=== PATIENT | female | born 1940 | race Caucasian/White ===

== ENCOUNTER 2019-06-14 17:04 | Emergency (ER) | payer OTHER ==
--- NOTE | 2019-06-14 17:49 | ED ---
Head Injury - HPI Summary HPI Summary: LEVEL 5 CAVEAT secondary to dementia. The patient is a 79 y/o F arriving by ambulance to [facility] with a chief complaint of fall with sustained head injury in the occipital region today. She reports that she isnt sure how she fell, but she denies LOC. She isnt sure if she was able to stand up on her own after the fall. She denies numbness in the extremities. States she is UTD on tetanus vaccine. PMHx: afib, HTN, PE, dementia. Nonsmoker, no EtOH, no substance use. Medications reviewed. Allergies notes. - History Of Current Complaint Stated Complaint: FALL, HEAD LACERATION PER EMS Time Seen by Provider: 06/14/19 17:42 Hx Obtained From: EMS, Medical Records Hx From Patient Unobtainable Due To: Dementia - LEVEL 5 CAVEAT Mechanism Of Injury: Fall From A Standing Position Onset/Duration: Started Hours Ago, Still Present Onset of Pain: Post Accident Severity Currently: Moderate Severity Initially: Moderate Pain Scale Used: 0-10 Numeric Location of Head Injury: Occipital Associated Signs And Symptoms: Other: - NEGATIVE: LOC, numbness in extremities - Allergies/Home Medications Allergies/Adverse Reactions: Allergies Allergy/AdvReac Type Severity Reaction Status Date / Time MS Ciprofloxacin Allergy Unknown Unknown Verified 09/11/15 13:48 [Ciprofloxacin] Reaction Details MS Penicillins [Penicillins] Allergy Unknown Unknown Verified 09/11/15 13:48 Reaction Details MS Sulfamethoxazole Allergy Unknown Unknown Verified 09/11/15 13:48 w/Trimethoprim Reaction [From Bactrim] Details Home Medications: Home Medications Latanoprost 0.005% Eye Drop 0.005 % BOTH EYES BEDTIME 06/14/19 [History Confirmed 06/14/19] Mirtazapine TAB* [Remeron TAB*] 15 mg PO BEDTIME 06/14/19 [History Confirmed 04/27] Senna-S Laxative Tablet 8.6 - 50 mg pe PO BEDTIME 06/14/19 [History Confirmed ] Vitamin D3 50,000 unit PO MONTHLY 06/14/19 [History Confirmed 06/14/19] PMH/Surg Hx/FS Hx/Imm Hx Endocrine/Hematology History: Denies: Hx Anticoagulant Therapy, Hx Diabetes, Hx Thyroid Disease Cardiovascular History: Reports: Hx Atrial Fibrillation, Hx Hypertension Denies: Hx Congestive Heart Failure, Hx Pacemaker/ICD Respiratory History: Reports: Hx Pulmonary Embolism Denies: Hx Asthma, Hx Chronic Obstructive Pulmonary Disease (COPD) GI History: Reports: Hx Gastroesophageal Reflux Disease History: Reports: Other Problems/Disorders - recurrent UTIs Denies: Hx Dialysis, Hx Renal Disease Musculoskeletal History: Reports: Hx Arthritis - very little Denies: Hx Back Problems, Hx Fibromyalgia, Hx Gout, Hx Orthopedic Injury, Hx Scoliosis Sensory History: Reports: Hx Contacts or Glasses Opthamlomology History: Reports: Hx Contacts or Glasses Neurological History: Reports: Hx Dementia Denies: Hx Seizures Psychiatric History: Reports: Hx Depression, Other Psychiatric Issues/Disorders - bad nightmares, perhaps hallucinations Denies: Hx Eating Disorder, Hx Substance Abuse - Surgical History Surgery Procedure, Year, and Place: SURGERY 12/19 FOR CYST ON LIVER Hx Anesthesia Reactions: No Infectious Disease History: Denies: Hx Hepatitis, Hx Human Immunodeficiency Virus (HIV) - Family History Known Family History: Positive: Unknown - patient with dementia, unable to provide - Social History Alcohol Use: None Hx Substance Use: No Substance Use Type: Reports: None Hx Tobacco Use: No Smoking Status (MU): Never Smoked Tobacco Review of Systems Neurological: Other - POSITIVE: head injury secondary to fall; NEGATIVE: LOC Negative: Numbness All Other Systems Reviewed And Are Negative: No - Comments Additional Review of Systems Comments: LEVEL 5 CAVEAT secondary to dementia Physical Exam - Summary Physical Exam Summary: Constitutional: Well-developed, Well-nourished, Alert. (-) Distressed Skin: Warm, Dry HENT: 3 cm laceration on the top of the scalp, Normocephalic Eyes: Conjunctiva normal Neck: Musculoskeletal ROM normal neck. (-) JVD, (-) Stridor, (-) Tracheal deviation Cardio: Rhythm regular, rate normal, Heart sounds normal; Intact distal pulses; The pedal pulses are 2+ and symmetric. Radial pulses are 2+ and symmetric. (-) Murmur Pulmonary/Chest wall: Effort normal. (-) Respiratory distress, (-) Wheezes, (-) Rales Abd: Soft, (-) tenderness, (-) Distension, (-) Guarding, (-) Rebound Musculoskeletal: (-) Edema Lymph: (-) Cervical adenopathy Neuro: Alert, Confused, Strength normal, Cranial nerves II-XII are grossly intact. (-) Dysmetria, (-) Nystagmus, (-) Ataxia by finger to nose testing, (-) Sensory deficit. GCS: 14 (see scale) Psych: Mood and affect Normal Triage Information Reviewed: Yes Vital Signs Reviewed: Yes Completion Of Physical Exam Limited Due To: Level 5 - secondary to dementia - Job Coma Scale Best Eye Response: 4 - Spontaneous Best Motor Response: 6 - Obeys Commands Best Verbal Response: 4 - Confused Coma Scale Total: 14 Procedures - Laceration/Wound Repair 1 Location: head - top of scalp Anesthesia: Lido - let gel Length, Depth and Shape: 3 cm Laceration/Wound Explored: clean Closure: Arturo #__ - 3 Diagnostics - Laboratory Lab Statement: Any lab studies that have been ordered have been reviewed, and results considered in the medical decision making process. - CT Brain CT CT Interpretation Completed By: Radiologist Summary of CT Findings: Impression: 1. No traumatic intracranial abnormalities. 2. Age-related atrophy and mild chronic small vessel ischemic disease unchanged from prior. ED physician has reviewed this report. Cervical Spine CT CT Interpretation Completed By: Radiologist Summary of CT Findings: Impression: 1. No cervical spine traumatic abnormalities. 2. Mild multilevel cervical spondylopathy. ED physician has reviewed this report. Re-Evaluation - Re-Evaluation First Eval Re-Evaluation Time: 19:25 Comment: I performed the head laceration repair. Head Injury Course/Dx Course Of Treatment: Patient is here after a mechanical fall. Patient had negative CT head and cervical spine. Patient had successful repair of her laceration with arturo. Patient is in her mental baseline per the EMS report. Patient was borderline tachycardic here and was given 1 L fluid. - Diagnoses Provider Diagnoses: Fall, Head injury Discharge - Sign-Out/Discharge Documenting (check all that apply): Patient Departure - Patient will be discharged home. Patient Received Moderate/Deep Sedation with Procedure: No - Discharge Plan Condition: Stable Disposition: HOME Patient Education Materials: Fall Prevention for Older Adults (ED), Head Injury (ED) Referrals: Singh Pitts MD [Primary Care Provider] - 3 Days Additional Instructions: Follow up with your primary care provider in 2-3 days. Return to the emergency department for any new or worsening symptoms. - Billing Disposition and Condition Condition: STABLE Disposition: Home - Attestation Statements Document Initiated by Scribe: Yes Documenting Scribe: Thalia Jackson Provider For Whom Scribe is Documenting (Include Credential): Dr. Robbi Abebe MD Scribe Attestation: I, Thalia Jackson, scribed for Dr. Robbi Abebe MD on 06/14/19 at 2000. Scribe Documentation Reviewed: Yes Provider Attestation: The documentation as recorded by the Thalia acevedo accurately reflects the service I personally performed and the decisions made by me, Dr. Robbi Abebe MD Status of Scribe Document: Viewed
[2019-06-14] MEDS ORDERED: NS 0.9% 1000 ML** 1,000 ML IV ONE (19:21)
[2019-06-14 20:35] VITALS: BP 135/80
== END 2019-06-14 20:33 | disposition home or self-care (01) ==
LOC: ED 17:04
DX: S09.90XA Unspecified injury of head, initial encounter (principal); M48.8X2 Other specified spondylopathies, cervical region; W19.XXXA Unspecified fall, initial encounter; Y92.9 Unspecified place or not applicable; I48.91 Unspecified atrial fibrillation; I10 Essential (primary) hypertension; F03.90 Unspecified dementia, unspecified severity, without behavioral disturbance, psychotic disturbance, mood disturbance, and anxiety; Z86.711 Personal history of pulmonary embolism; Z88.1 Allergy status to other antibiotic agents; Z88.0 Allergy status to penicillin; Z88.2 Allergy status to sulfonamides; Z79.899 Other long term (current) drug therapy
CPT/HCPCS: 12002; 70450; 72125; 99282

== ENCOUNTER 2024-07-16 23:00 | Inpatient (IN) ==
[2024-07-17 00:06] LABS: ABS Eosinophils 0.1 10^3/uL (0.0-0.5); ABS Lymphocytes 1.9 10^3/uL (1.0-4.8); ABS Monocytes 0.9 10^3/uL (0.0-0.9); ABS Neutrophils 7.4 10^3/uL (1.5-7.6); ABS Nucleated RBC 0.01 10^3/ul; Eosinophil % 0.7 %; Hematocrit 40.9 % (35-45); Hemoglobin 13.2 g/dL (11.5-14.3); Lymphocyte % 18.6 %; Mean Corpuscular Hemoglobin 27.1 pg (27-33); Mean Corpuscular Hgb Conc 32.4 g/dL (31-36); Mean Corpuscular Volume 83.5 fL (80-97); Mean Platelet Volume 9.1 fL (7.5-11.2); Nucleated Red Blood Cells % 0.1 %/100WBC (0.0-0.8); Platelet Count 304 10^3/uL (150-450); Red Blood Count 4.89 10^6/uL (3.63-4.92); Red Cell Distribution Width 14.3 % (12-17); White Blood Count 10.3 10^3/uL (3.8-11.8)
[2024-07-17] MEDS: Lactated Ringers 1000 ml BAG 1,000 ML IV SCH ×2 (00:10→17:23)
[2024-07-17 00:13] LABS: Albumin/Globulin Ratio 0.8 (1-3); C Reactive Protein 120.7 mg/L (<8.01); Calcium 8.6 mg/dL (8.6-10.3); Creatinine, Serum 1.86 mg/dL (0.51-0.95); Potassium 4.1 mmol/L (3.5-5.0); Total Bilirubin 0.6 mg/dL (0.2-1.0); eGFR CKD-EPI 26.5 (>60)
[2024-07-17 00:42] LABS: INR 1.46 (0.85-1.14)
[2024-07-17] MEDS: Sodium Phosphate ADULT ENEMA 133 ML BTL PR ONE (03:15)
[2024-07-17 03:43] LABS: Urine Appearance Extra Turbid; Urine Bilirubin Negative (Negative); Urine Blood 2+ (Negative); Urine Glucose Negative (Negative); Urine Ketones Negative (Negative); Urine Nitrite Negative (Negative); Urine Protein 1+ (>=30 mg/dL) (Negative); Urine Specific Gravity 1.014 (1.002-1.030); Urine Urobilinogen Negative (Negative); Urine pH 5.5 (5.0-8.0)
[2024-07-17 04:04] LABS: Urine Bacteria 3+ /HPF (Absent); Urine Red Blood Cell 2+(6-10/hpf) /HPF (0-Trace); Urine White Blood Cell 3+(>20/hpf) /HPF (0-Trace)
[2024-07-17 04:15] LABS: Urine Color Light-Yellow
[2024-07-17] MEDS ORDERED: Magnesium Hydroxide LIQ 30 ML UDC PO PRN (05:24)
[2024-07-17 08:03] LABS: ABS Basophils 0.1 10^3/uL (0.0-0.1); ABS Eosinophils 0.1 10^3/uL (0.0-0.5); ABS Lymphocytes 1.4 10^3/uL (1.0-4.8); ABS Monocytes 0.8 10^3/uL (0.0-0.9); ABS Neutrophils 6.7 10^3/uL (1.5-7.6); Eosinophil % 0.6 %; Hematocrit 36.9 % (35-45); Hemoglobin 12.2 g/dL (11.5-14.3); Lymphocyte % 15.3 %; Mean Corpuscular Hemoglobin 27.6 pg (27-33); Mean Corpuscular Volume 83.7 fL (80-97); Mean Platelet Volume 8.7 fL (7.5-11.2); Platelet Count 263 10^3/uL (150-450); Red Blood Count 4.41 10^6/uL (3.63-4.92); Red Cell Distribution Width 14.3 % (12-17)
[2024-07-17] MEDS: Latanoprost 0.005% 2.5 ml BTL BOTH EYES SCH (08:41)
[2024-07-17] MEDS: Brimonidine P 0.1%(NF) 1 DROP BTL BOTH EYES SCH (08:41)
[2024-07-17] MEDS: Lactulose 30 ml UDC PO SCH (08:42)
[2024-07-17] MEDS: Heparin 5000 UNITS/ML 1 mL VIAL SUBCUT SCH (08:42)
[2024-07-17] MEDS: cefTRIAXone 1 gm/50 mL D5W 1 GM/50 ML BAG IV SCH (08:42)
[2024-07-17] MEDS: Pentoxifylline CR 400 mg TAB 400 MG PO SCH (08:42)
[2024-07-17 09:05] LABS: Calcium 8.2 mg/dL (8.6-10.3); Creatinine, Serum 1.65 mg/dL (0.51-0.95); Magnesium 2.3 mg/dL (1.9-2.7); Phosphorus 3.2 mg/dL (2.5-5.0); eGFR CKD-EPI 30.6 (>60)
[2024-07-17] MEDS: PEG 3000 GI LAVAGE 1 GALLON PO ONE (15:49)
[2024-07-18] MEDS: cefTRIAXone 1 gm/50 mL D5W 1 GM/50 ML BAG IV SCH (09:43)
[2024-07-18] MEDS: Polyethylene Glycol 3350 17 GM PACKET PO SCH (11:45)
[2024-07-18 11:51] LABS: ABS Lymphocytes 1.2 10^3/uL (1.0-4.8); ABS Monocytes 0.6 10^3/uL (0.0-0.9); ABS Neutrophils 6.2 10^3/uL (1.5-7.6); Eosinophil % 0.5 %; Hematocrit 33.9 % (35-45); Hemoglobin 11.3 g/dL (11.5-14.3); Lymphocyte % 14.7 %; Mean Corpuscular Hemoglobin 27.5 pg (27-33); Mean Corpuscular Hgb Conc 33.2 g/dL (31-36); Mean Corpuscular Volume 82.9 fL (80-97); Mean Platelet Volume 8.6 fL (7.5-11.2); Platelet Count 272 10^3/uL (150-450); Red Blood Count 4.09 10^6/uL (3.63-4.92); Red Cell Distribution Width 14.5 % (12-17)
[2024-07-18 12:08] LABS: Calcium 7.6 mg/dL (8.6-10.3); Creatinine, Serum 1.4 mg/dL (0.51-0.95); Potassium 3.7 mmol/L (3.5-5.0); eGFR CKD-EPI 37.3 (>60)
[2024-07-18] MEDS: Magnesium Hydroxide LIQ 30 ML UDC PO PRN (12:23)
[2024-07-18] MEDS: Senna TAB 8.6 mg TAB PO SCH (21:26)
[2024-07-18] MEDS: Heparin 5000 UNITS/ML 1 mL VIAL SUBCUT SCH (21:32)
[2024-07-19 07:21] LABS: ABS Eosinophils 0.1 10^3/uL (0.0-0.5); ABS Lymphocytes 1.3 10^3/uL (1.0-4.8); ABS Monocytes 0.5 10^3/uL (0.0-0.9); ABS Neutrophils 4.1 10^3/uL (1.5-7.6); ABS Nucleated RBC 0.01 10^3/ul; Eosinophil % 1.2 %; Hematocrit 31.3 % (35-45); Hemoglobin 10.5 g/dL (11.5-14.3); Lymphocyte % 21.7 %; Mean Corpuscular Hgb Conc 33.6 g/dL (31-36); Mean Corpuscular Volume 83.1 fL (80-97); Mean Platelet Volume 8.6 fL (7.5-11.2); Nucleated Red Blood Cells % 0.1 %/100WBC (0.0-0.8); Platelet Count 239 10^3/uL (150-450); Red Blood Count 3.77 10^6/uL (3.63-4.92); Red Cell Distribution Width 14.1 % (12-17)
[2024-07-19 08:07] LABS: Calcium 7.5 mg/dL (8.6-10.3); Creatinine, Serum 1.26 mg/dL (0.51-0.95); Potassium 3.8 mmol/L (3.5-5.0); eGFR CKD-EPI 42.4 (>60)
[2024-07-20 05:18] LABS: ABS Eosinophils 0.1 10^3/uL (0.0-0.5); ABS Lymphocytes 1.2 10^3/uL (1.0-4.8); ABS Monocytes 0.5 10^3/uL (0.0-0.9); ABS Neutrophils 4.4 10^3/uL (1.5-7.6); Eosinophil % 1.4 %; Hematocrit 32.5 % (35-45); Hemoglobin 10.5 g/dL (11.5-14.3); Lymphocyte % 19.6 %; Mean Corpuscular Hemoglobin 26.8 pg (27-33); Mean Corpuscular Hgb Conc 32.3 g/dL (31-36); Mean Corpuscular Volume 82.9 fL (80-97); Mean Platelet Volume 8.9 fL (7.5-11.2); Platelet Count 257 10^3/uL (150-450); Red Blood Count 3.92 10^6/uL (3.63-4.92); Red Cell Distribution Width 13.9 % (12-17); White Blood Count 6.2 10^3/uL (3.8-11.8)
[2024-07-20] MEDS: PEG 3000 GI LAVAGE 1 GALLON PO ONE (05:18)
[2024-07-20 05:39] LABS: Calcium 7.3 mg/dL (8.6-10.3); Creatinine, Serum 1.01 mg/dL (0.51-0.95); Magnesium 2.4 mg/dL (1.9-2.7); eGFR CKD-EPI 55.2 (>60)
[2024-07-20] MEDS: Magnesium CITRATE LIQ 300 ML BTL PO ONE (14:49)
[2024-07-21 06:01] LABS: ABS Eosinophils 0.1 10^3/uL (0.0-0.5); ABS Lymphocytes 1.2 10^3/uL (1.0-4.8); ABS Monocytes 0.4 10^3/uL (0.0-0.9); ABS Neutrophils 5.2 10^3/uL (1.5-7.6); ABS Nucleated RBC 0.01 10^3/ul; Eosinophil % 1.4 %; Hematocrit 31.9 % (35-45); Hemoglobin 10.6 g/dL (11.5-14.3); Lymphocyte % 17.6 %; Mean Corpuscular Hemoglobin 27.3 pg (27-33); Mean Corpuscular Hgb Conc 33.3 g/dL (31-36); Mean Corpuscular Volume 82.1 fL (80-97); Mean Platelet Volume 8.5 fL (7.5-11.2); Nucleated Red Blood Cells % 0.1 %/100WBC (0.0-0.8); Platelet Count 267 10^3/uL (150-450); Red Blood Count 3.89 10^6/uL (3.63-4.92); Red Cell Distribution Width 14.1 % (12-17); White Blood Count 6.9 10^3/uL (3.8-11.8)
[2024-07-21] MEDS: Senna TAB 8.6 mg TAB PO SCH (22:30)
[2024-07-22 10:16] VITALS: BP 106/55
[2024-07-22 10:32] LABS: Rapid COVID-19 Molecular Undetected (Undetected)
== END 2024-07-22 13:21 | DRG 392 ==
LOC: ED 23:00 → EDHOLD 23:00 → MEDTELE 07-17 15:55
PROVIDERS: ADMIT Internal Medicine; ATTEND Physician Assistant